=== PATIENT | male | born 2000 | race Caucasian/White ===

== ENCOUNTER 2019-06-04 | Emergency (ER) | payer BC ==
[2019-06-04] MEDS ORDERED: Famotidine 20 MG Tab PO ONE (00:23)
[2019-06-04] MEDS ORDERED: Alum Hydrox/Mag Hydrox/Simeth 30 ML, Lidocaine 2% 15 ML PO ONE ×2 (00:23)
--- NOTE | 2019-06-04 01:15 | EDM.PDOC ---
ED HPI GENERAL MEDICAL PROBLEM - General Chief Complaint: Chest Pain Stated Complaint: BACK PAIN THAT GOES INTO CHEST Time Seen by Provider: 06/04/19 00:20 Source of Information: Reports: Patient History Limitations: Reports: No Limitations - History of Present Illness INITIAL COMMENTS - FREE TEXT/NARRATIVE: The patient presents with upper abdominal pain and chest pain. This all started a few days ago. He says he has been eating some spicier food lately. He did vomit a couple days ago. He has no fever, chills, or cough. He has no diarrhea. He has no health problems. He does have heart disease in his family. He does smoke. He has no pain or swelling in his legs. Onset: Gradual Duration: Day(s): Location: Reports: Chest, Abdomen Quality: Reports: Sharp Severity: Moderate Improves with: Reports: None Worsens with: Reports: None Associated Symptoms: Reports: Chest Pain, Nausea/Vomiting. 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 Cardiovascular History: Reports: None Respiratory History: Reports: Asthma Gastrointestinal History: Reports: None Genitourinary History: Reports: None Musculoskeletal History: Reports: None Neurological History: Reports: None Psychiatric History: Reports: None Endocrine/Metabolic History: Reports: None Hematologic History: Reports: None Immunologic History: Reports: None Oncologic (Cancer) History: Reports: None Dermatologic History: Reports: None - Infectious Disease History Infectious Disease History: Reports: None - Past Surgical History Head Surgeries/Procedures: Reports: None HEENT Surgical History: Reports: Adenoidectomy, Naso-Sinus Surgery, Tonsillectomy Respiratory Surgical History: Reports: None GI Surgical History: Reports: None Male Surgical History: Reports: None Neurological Surgical History: Reports: None Musculoskeletal Surgical History: Reports: None Social & Family History - Family History Family Medical History: Noncontributory - Tobacco Use Smoking Status *Q: Current Every Day Smoker Years of Tobacco use: 3 Packs/Tins Daily: 1.5 - Caffeine Use Caffeine Use: Reports: Coffee - Recreational Drug Use Recreational Drug Use: No ED ROS GENERAL - Review of Systems Review Of Systems: See Below Constitutional: Reports: No Symptoms HEENT: Reports: No Symptoms Respiratory: Reports: No Symptoms Cardiovascular: Reports: Chest Pain Endocrine: Reports: No Symptoms GI/Abdominal: Reports: Abdominal Pain, Nausea, Vomiting. Denies: Diarrhea : Reports: No Symptoms Musculoskeletal: Reports: No Symptoms Skin: Reports: No Symptoms ED EXAM, GENERAL - Physical Exam Exam: See Below Exam Limited By: No Limitations General Appearance: Alert, No Apparent Distress Ears: Normal External Exam Nose: Normal Inspection Head: Atraumatic, Normocephalic Neck: Normal Inspection Respiratory/Chest: No Respiratory Distress, Lungs Clear, Normal Breath Sounds Cardiovascular: Regular Rate, Rhythm, No Edema, No Murmur GI/Abdominal: Soft, No Organomegaly, No Mass, Tender (Mild to moderate tenderness to the upper abdomen) Extremities: Normal Inspection Neurological: Alert, Oriented, No Motor/Sensory Deficits EKG INTERPRETATION EKG Date: 06/04/19 Time: 00:30 Rhythm: NSR Rate (Beats/Min): 62 [place]: Normal P-Wave: Present QRS: Normal ST-T: Elevated (Normal early repol) QT: Normal Course - Vital Signs Last Recorded V/S: Last Vital Signs Temp 98.1 F 06/04/19 00:09 Pulse 71 06/04/19 00:09 Resp 18 06/04/19 00:09 BP 139/83 06/04/19 00:09 Pulse Ox 99 06/04/19 00:09 - Orders/Labs/Meds Orders: Active Orders 24 hr Category Date Time Status Cardiac Monitoring [RC] . DIRECTED Care 06/04/19 00:22 Active EKG Documentation Completion [RC] STAT Care 06/04/19 00:23 Active Peripheral IV Care [RC] . DIRECTED Care 06/04/19 02:46 Active Abdomen Pelvis w Cont [CT] Stat Exams 06/04/19 02:06 Taken Ang Chest [CT] Stat Exams 06/04/19 01:41 Taken Chest 2V [CR] Stat Exams 06/04/19 00:23 Taken Sodium Chloride 0.9% [Normal Saline] 1,000 ml Med 06/04/19 02:46 Active IV ONETIME Sodium Chloride 0.9% [Saline Flush] Med 06/04/19 02:45 Active 10 ml FLUSH ASDIRECTED PRN Peripheral IV Insertion Adult [OM.PC] Routine Oth 06/04/19 02:45 Ordered Medication Orders Sodium Chloride (Normal Saline) 1,000 mls @ 1,000 mls/hr IV ONETIME ONE Stop: 06/04/19 03:45 Last Admin: 06/04/19 02:59 Dose: 1,000 mls/hr Sodium Chloride (Saline Flush) 10 ml FLUSH ASDIRECTED PRN PRN Reason: Keep Vein Open Last Admin: 06/04/19 02:59 Dose: 10 ml Labs: Laboratory Tests 06/04/19 06/04/19 06/04/19 Range/Units 00:45 00:45 00:45 WBC 9.13 H (4.23-9.07) K/mm3 RBC 5.06 (4.63-6.08) M/mm3 Hgb 14.8 (13.7-17.5) gm/dl Hct 43.6 (40.1-51.0) % MCV 86.2 (79.0-92.2) fl MCH 29.2 (25.7-32.2) pg MCHC 33.9 (32.2-35.5) g/dl RDW Std Deviation 38.3 (35.1-43.9) fL Plt Count 267 (163-337) K/mm3 MPV 10.2 (9.4-12.3) fl Neut % (Auto) 53.0 (34.0-67.9) % Lymph % (Auto) 29.7 (21.8-53.1) % Braxton % (Auto) 13.7 H (5.3-12.2) % Eos % (Auto) 2.7 (0.8-7.0) Baso % (Auto) 0.7 (0.1-1.2) % Neut # (Auto) 4.84 (1.78-5.38) K/mm3 Lymph # (Auto) 2.71 (1.32-3.57) K/mm3 Braxton # (Auto) 1.25 H (0.30-0.82) K/mm3 Eos # (Auto) 0.25 (0.04-0.54) K/mm3 Baso # (Auto) 0.06 (0.01-0.08) K/mm3 D-Dimer, Quantitative 0.84 H (0.19-0.50) mg/L Sodium 138 (136-145) mEq/L Potassium 3.8 (3.5-5.1) mEq/L Chloride 102 (98-107) mEq/L Carbon Dioxide 27 (21-32) mEq/L Anion Gap 12.8 (5-15) BUN 13 (7-18) mg/dL Creatinine 0.8 (0.7-1.3) mg/dL Est Cr Clr Drug Dosing 153.35 mL/min Estimated GFR (MDRD) > 60 (>60) mL/min BUN/Creatinine Ratio 16.3 (14-18) Glucose 111 H (74-106) mg/dL Calcium 9.3 (8.5-10.1) mg/dL Total Bilirubin 0.4 (0.2-1.0) mg/dL AST 75 H (15-37) U/L ALT 262 H (16-63) U/L Alkaline Phosphatase 92 (46-116) U/L Troponin I < 0.017 (0.00-0.056) ng/mL Total Protein 7.5 (6.4-8.2) g/dl Albumin 4.0 (3.4-5.0) g/dl Globulin 3.5 gm/dL Albumin/Globulin Ratio 1.1 (1-2) Lipase 6309 H (73-393) U/L Ethyl Alcohol (0.00) gm% 06/04/19 Range/Units 00:45 WBC (4.23-9.07) K/mm3 RBC (4.63-6.08) M/mm3 Hgb (13.7-17.5) gm/dl Hct (40.1-51.0) % MCV (79.0-92.2) fl MCH (25.7-32.2) pg MCHC (32.2-35.5) g/dl RDW Std Deviation (35.1-43.9) fL Plt Count (163-337) K/mm3 MPV (9.4-12.3) fl Neut % (Auto) (34.0-67.9) % Lymph % (Auto) (21.8-53.1) % Braxton % (Auto) (5.3-12.2) % Eos % (Auto) (0.8-7.0) Baso % (Auto) (0.1-1.2) % Neut # (Auto) (1.78-5.38) K/mm3 Lymph # (Auto) (1.32-3.57) K/mm3 Braxton # (Auto) (0.30-0.82) K/mm3 Eos # (Auto) (0.04-0.54) K/mm3 Baso # (Auto) (0.01-0.08) K/mm3 D-Dimer, Quantitative (0.19-0.50) mg/L Sodium (136-145) mEq/L Potassium (3.5-5.1) mEq/L Chloride (98-107) mEq/L Carbon Dioxide (21-32) mEq/L Anion Gap (5-15) BUN (7-18) mg/dL Creatinine (0.7-1.3) mg/dL Est Cr Clr Drug Dosing mL/min Estimated GFR (MDRD) (>60) mL/min BUN/Creatinine Ratio (14-18) Glucose (74-106) mg/dL Calcium (8.5-10.1) mg/dL Total Bilirubin (0.2-1.0) mg/dL AST (15-37) U/L ALT (16-63) U/L Alkaline Phosphatase (46-116) U/L Troponin I (0.00-0.056) ng/mL Total Protein (6.4-8.2) g/dl Albumin (3.4-5.0) g/dl Globulin gm/dL Albumin/Globulin Ratio (1-2) Lipase (73-393) U/L Ethyl Alcohol 0.00 (0.00) gm% Meds: Medications Generic Name Dose Route Start Last Admin Trade Name Freq PRN Reason Stop Dose Admin Sodium Chloride 1,000 mls @ 1,000 mls/hr 06/04/19 02:46 06/04/19 02:59 Normal Saline IV 06/04/19 03:45 1,000 mls/hr ONETIME ONE Administration Sodium Chloride 10 ml 06/04/19 02:45 06/04/19 02:59 Saline Flush FLUSH 10 ml ASDIRECTED PRN Administration Keep Vein Open Discontinued Medications Generic Name Dose Route Start Last Admin Trade Name Petrona PRN Reason Stop Dose Admin Al Hydroxide/Mg Hydroxide 30 0 ml 06/04/19 00:23 06/04/19 00:49 ml/ Lidocaine HCl 15 ml PO 06/04/19 00:24 45 ml ONETIME ONE Administration Famotidine 20 mg 06/04/19 00:23 06/04/19 00:49 Pepcid PO 06/04/19 00:24 20 mg ONETIME ONE Administration - Re-Assessments/Exams Free Text/Narrative Re-Assessment/Exam: 06/04/19 01:14 I ordered an EKG, CXR, labs, GI cocktail and pepcid. I did an US and his gallbladder looks good. 06/04/19 03:03 His EKG shows a NSR with no acute changes. His CXR looks good. His WBC was elevated at 9.13. His D-dimer was elevated at 0.84. I ordered a CT angio of his chest. His glucose was 111. His AST was elevated at 75 and his ALT is 262. His troponin is negative. His lipase was elevated at 6,309. He has pancreatitis. He says he does drink heavy. I then ordered a CT of his abdomen and pelvis and an ETOH. 06/04/19 03:[address] of his chest shows no PE. The CT of his abdomen and pelvis shows acute pancreatitis. 06/04/19 03:42 I feel he needs to be admitted but he wants to try to do this at home. I will give him some zofran and something for pain. Departure - Departure Time of Disposition: 15:45 Disposition: Home, Self-Care 01 Condition: Good Clinical Impression: Pancreatitis Qualifiers: Chronicity: acute Pancreatitis type: alcohol induced Acute pancreatitis complication: no infection or necrosis Qualified Code(s): K85.20 - Alcohol induced acute pancreatitis without necrosis or infection Prescriptions: Hydrocodone/Acetaminophen [Hydrocodon-Acetaminophen 5-325] 1 - 2 each PO Q6HR PRN #20 tablet PRN Reason: Pain Ondansetron [Zofran ODT] 4 mg PO Q6H PRN #20 tab.dis PRN Reason: Nausea\vomiting Referrals: PCP,None [Primary Care Provider] - Aaliyah Diana PA-C [Physician Research Assistant] - 3 Days Forms: ED Department Discharge Additional Instructions: Drink plenty of fluids and advance your diet as tolerated. Do not drink alcohol. Take the zofran every 6 hours as needed for nausea and vomiting. Take the hydrocodone as needed for pain. Please return if you are worse. Sepsis Event Note - Evaluation Sepsis Screening Result: No Definite Risk - Focused Exam Vital Signs: Vital Signs Temp Pulse Resp BP Pulse Ox 06/04/19 00:09 98.1 F 71 18 139/83 99 Date Exam was Performed: 06/04/19 Time Exam was Performed: 03:41 - My Orders Last 24 Hours: My Active Orders 06/04/19 00:22 Cardiac Monitoring [RC] . DIRECTED 06/04/19 00:23 EKG Documentation Completion [RC] STAT Chest 2V [CR] Stat 06/04/19 01:41 Ang Chest [CT] Stat 06/04/19 02:06 Abdomen Pelvis w Cont [CT] Stat 06/04/19 02:45 Sodium Chloride 0.9% [Saline Flush] 10 ml FLUSH ASDIRECTED PRN Peripheral IV Insertion Adult [OM.PC] Routine 06/04/19 02:46 Peripheral IV Care [RC] . DIRECTED Sodium Chloride 0.9% [Normal Saline] 1,000 ml IV ONETIME - Assessment/Plan Last 24 Hours: My Active Orders 06/04/19 00:22 Cardiac Monitoring [RC] . DIRECTED 06/04/19 00:23 EKG Documentation Completion [RC] STAT Chest 2V [CR] Stat 06/04/19 01:41 Ang Chest [CT] Stat 06/04/19 02:06 Abdomen Pelvis w Cont [CT] Stat 06/04/19 02:45 Sodium Chloride 0.9% [Saline Flush] 10 ml FLUSH ASDIRECTED PRN Peripheral IV Insertion Adult [OM.PC] Routine 06/04/19 02:46 Peripheral IV Care [RC] . DIRECTED Sodium Chloride 0.9% [Normal Saline] 1,000 ml IV ONETIME
[2019-06-04] MEDS ORDERED: Sodium Chloride 0.9% 10 ML Syringe FLUSH PRN (02:45)
[2019-06-04] MEDS ORDERED: Sodium Chloride 0.9% 1,000 ML IV ONE (02:46)
--- NOTE | 2019-06-04 07:06 | CR ---
Chest: Two views of the chest were obtained. Comparison: No prior chest imaging is available, subsequent CT chest performed later on the same day is available. Heart size and mediastinum are normal. Lungs are clear. Bony structures are unremarkable for the patient's age. Impression: 1. Nothing acute is appreciated on two-view chest x-ray. Diagnostic code #1 This report was dictated in [place] Standard Time
--- NOTE | 2019-06-04 07:45 | CT ---
CT chest Technique: Multiple axial sections through the chest were obtained. Intravenous contrast was utilized. Study performed as a pulmonary angiogram protocol. Findings: Pulmonary arteries are moderately well-opacified. No discrete filling defects are seen to indicate pulmonary embolism. Aorta shows no aneurysm or dissection. No pericardial thickening is seen. Mediastinum and hilar region show no adenopathy. No axillary adenopathy is seen. Visualized upper abdominal structures appear within normal limits. Lung window settings were reviewed. Lungs show no acute parenchymal change. No pleural effusions are seen. No pneumothorax is identified. No acute osseous finding is seen. Impression: 1. No findings of pulmonary embolism. 2. Nothing acute is appreciated on CT study of the chest. Diagnostic code #1 This report was dictated in [place] Standard Time I agree with preliminary report from [facility], finalized on 06/04/19, 4:23 AM Central Time
--- NOTE | 2019-06-04 07:45 | CT ---
CT abdomen and pelvis Technique: Multiple axial sections were obtained from above the dome of the diaphragm inferiorly through the pubic symphysis. Intravenous contrast was utilized. No oral contrast has been given. Delayed images were also obtained through the bladder. Comparison: No prior abdominal imaging. Findings: Visualized lung bases show nothing acute. Liver contains no focal parenchymal abnormality. Gallbladder contains no calcified gallstones. Spleen appears within normal limits. Kidneys show symmetric contrast enhancement without hydronephrosis or mass. Adrenal glands show no nodule. Haziness is noted around the pancreas. Findings suggest the possibility of mild pancreatitis. Aorta shows no aneurysm. No retroperitoneal adenopathy or mesenteric abnormalities are seen. No pelvic mass or adenopathy is identified. Delayed images through the bladder show contrast within the bladder and within the distal ureters. Appendix is seen and is normal in size. Bone window settings were reviewed which appear within normal limits for the patient's age. Impression: 1. Mild haziness around the pancreas suggesting mild pancreatitis. 2. No additional abnormality is identified on CT study of the abdomen and pelvis. Diagnostic code #3 This report was dictated in [place] Standard Time I agree with preliminary report from [facility], finalized on 06/04/19, 4:23 AM Central Time
== END 2019-06-04 04:00 | disposition home or self-care (01) ==
LOC: JD.ED
DX: K85.20 Alcohol induced acute pancreatitis without necrosis or infection (principal); F17.210 Nicotine dependence, cigarettes, uncomplicated; Z88.8 Allergy status to other drugs, medicaments and biological substances
CPT/HCPCS: 36415; 71046; 71275; 74177; 80053; 80320; 83690; 84484; 85025; 85379; 93005; 96360; 99285; A9270; J7030; 93010; 99284; G0480

== ENCOUNTER 2019-06-15 13:13 | Emergency (ER) | payer BC | END 2019-06-15 13:50 | disposition left against medical advice (07) | LOC: JD.ED 13:13 | DX: Z53.21 Procedure and treatment not carried out due to patient leaving prior to being seen by health care provider (principal) ==